=== PATIENT | female | born 1950 | race Caucasian/White ===

== ENCOUNTER 2023-04-18 16:00 | Outpatient (CLI) | payer MEDICARE, OTHER, SELFPAY ==
--- NOTE | ~2023-04-18 | CT_ITS ---
EXAMINATION: CT abdomen pelvis wo con DATE: 04/18/2023 17:06 INDICATION: Vaginal bleeding. Hematuria. Left and right lower quadrant bloating for one week. TECHNIQUE: Computed tomography (CT) of the abdomen and pelvis was performed without intravenous contr ast. Automated exposure control and iterative reconstruction technique were employed. Exam dose: 490 .60 mGy-cm total exam DLP. COMPARISON: None. FINDINGS: Fat-containing foramen of Morgagni hernia. No pericardial or pleural effusion. Bilateral lower lobe peripheral mild discoid atelectasis or scarring and likely chronic bilateral low er lobe primarily peripheral septal soft tissue thickening. The liver, gallbladder, bile ducts, spleen, pancreas and pancreatic duct are unremarkable. Normal morphology of the adrenal glands. No renal mass lesion or urinary tract calculus or hydroureteronephrosis is detected. There is atherosclerotic calcification but normal caliber of the abdominal aorta, iliac and femoral a rteries. No intraperitoneal or retroperitoneal or pelvic mass lesion or adenopathy or ascites is note d. Normal appendix. No bowel obstruction, bowel wall thickening, pneumatosis or intraperitoneal free air is detected. The urinary bladder is unremarkable. There is evidence of hysterectomy. Levoscoliosis of the lumbar spine. There is a transitional first sacral vertebra. There is degenerative change at the apophyseal joints with grade 1 anterolisthesis between at L3-4 an d L5-S1.. There is severe degenerative disc disease at L1-2. No suspicious osteolytic or osteoblastic lesions.. IMPRESSION: Status post hysterectomy No urinary tract mass lesion or calculus or hydronephrosis is evident on this limited noncontrast exa mination Reviewed, dictated and finalized at [facility]. Reviewed, dictated and finalized at [facility] IMPRESSION: Status post hysterectomy No urinary tract mass lesion or calculus or hydronephrosis is evident on this l imited noncontrast examination
== END 2023-04-18 16:01 | disposition home or self-care (01) ==
PROVIDERS: PCP Registered Nurse; Visit Provider Registered Nurse
DX: N93.9 Abnormal uterine and vaginal bleeding, unspecified (principal); Z90.710 Acquired absence of both cervix and uterus
CPT/HCPCS: 74176